=== PATIENT | male | born 1950 | race Caucasian/White ===

== ENCOUNTER 2020-08-19 12:18 | Emergency (ER) | payer OTHER ==
[~2020-08-19] VITALS: Ht 180.3 cm; Wt 126.6 kg
[~2020-08-19 12:18] MED LIST: ALLOPURINOL100 MG PO; COL100 PO; HYD25 PO; KEFLEX500 MG PO; LAC PO; LIDODERM51 TOP; LISINOPRIL10 MG PO; NOR10T PO; NORCO1 TA2 PO; OXYBUTYNIN CHLOR5 MG PO
[2020-08-19 12:35] VITALS: Ht 180.3 cm; Wt 126.6 kg
[2020-08-19 13:25] LABS: CALCIUM 9.2 mg/dL (8.5-10.1); CARBON DIOXIDE 22.9 mmol/L (21-32); CHLORIDE SERUM 102 mmol/L (98-107); GFR1 > 60 mL/min; GLUCOSE SERUM 96 mg/dL (74-106); POTASSIUM SERUM 4.2 mmol/L (3.5-5.1); SODIUM SERUM 135 mmol/L (136-145)
[2020-08-19 13:29] LABS: ALBUMIN 3.9 g/dL (3.4-5.0); ALKALINE PHOSPHATASE 90 U/L (46-116); ALT/SGPT 24 U/L (16-63); AST/SGOT 16 U/L (15-37); BILIRUBIN TOTAL 0.7 mg/dL (0.20-1.00); CHOLESTEROL 231 mg/dL (<200); CHOLESTEROL/HDL RATIO 5.9; HDL CHOLESTEROL 39 mg/dL (40-60); LIPASE 155 IU/L (73-393); TOTAL PROTEIN, SERUM 7.5 g/dL (6.4-8.2); TRIGLYCERIDES 385 mg/dL (<150)
[2020-08-19 13:41] LABS: FREE T4 1.06 ng/dL (0.76-1.46); FREE THYROXINE INDEX 3.1 ug/dL (1.4-4.5); T4(THYROXINE) 8.3 ug/dL (4.7-13.3)
[2020-08-19 13:46] LABS: BASOPHIL % 1.2 % (0-2); PLATELET COUNT 204 x10^3mcL (130-400); RED CELL DISTRIBUTION WIDTH 14.4 % (11.5-14.5)
[2020-08-19 14:07] LABS: UA SPECIFIC GRAVITY 1.025 (1.005-1.035); microscopic required? YES; urine erythrocyte NEGATIVE (NEGATIVE)
[2020-08-19 14:43] LABS: T3 TOTAL 1.42 ng/mL
[2020-08-19 17:06] VITALS: BP 107/70
== END 2020-08-19 17:24 | disposition short-term general hospital (02) ==
LOC: ED 12:18 → EDBD 12:18 → ED 17:24
PROVIDERS: Specialist
DX: I71.4 Abdominal aortic aneurysm, without rupture (principal); I10 Essential (primary) hypertension
CPT/HCPCS: 83880; 84439; J1885; J2270; J2405; J3010; J7030; Q9967